=== PATIENT | female | born 1960 | race Caucasian/White ===

== ENCOUNTER 2017-10-31 09:38 | Emergency (ER) | payer OTHER ==
[2017-10-31] MEDS ORDERED: Ibuprofen 800 MG TAB ONE (10:34)
--- NOTE | 2017-10-31 11:08 | RAD ---
RIGHT KNEE 4 VIEWS: Date: 10/31/17 No acute fracture or joint effusion was seen. There may be some minor medial joint space narrowing. T here is ossification at the insertion of the quadriceps tendon on the patella. IMPRESSION: No acute bony finding. POS: HOME
== END 2017-10-31 10:38 | disposition home or self-care (01) ==
LOC: BURERS 09:38
DX: S80.01XA Contusion of right knee, initial encounter (principal); E78.5 Hyperlipidemia, unspecified; F17.210 Nicotine dependence, cigarettes, uncomplicated; W17.89XA Other fall from one level to another, initial encounter